=== PATIENT | female | born 1990 | race American Indian/Alaskan Native ===

== ENCOUNTER 2020-08-04 14:44 | Emergency (ER) | payer MEDICAID, OTHER ==
[2020-08-04 15:58] VITALS: BP 117/60
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
--- NOTE | 2020-08-04 19:41 | XRay Report ---
LEFT HAND 3 VIEW(S) INDICATION / CLINICAL INFORMATION: HAND PAIN COMPARISON: None available. FINDINGS: BONES / JOINT(S): No acute fracture or subluxation. No significant arthritis. SOFT TISSUES: No significant abnormality. ADDITIONAL FINDINGS: None. IMPRESSION: No acute osseous findings of the left hand. Signer Name: Baldemar De León MD Signed: 08/04/2020 7:37 PM Workstation Name: [id number]
--- NOTE | 2020-08-04 19:41 | XRay Report ---
XR spine cervical 2-3V INDICATION / CLINICAL INFORMATION: neck pain. COMPARISON: None available. FINDINGS: BONES/JOINT(S): Minimal retrolisthesis of C4 on C5, which may be partially related to projection. Cer vical spinal alignment is otherwise preserved. Vertebral body heights are intact. There is no evidenc e of fracture. Cervical disc spaces are maintained. PARASPINAL SOFT TISSUES:No significant abnormality. ADDITIONAL FINDINGS: None. IMPRESSION: No acute osseous findings of the cervical spine. Signer Name: Baldemar De León MD Signed: 08/04/2020 7:36 PM Workstation Name: [id number]
== END 2020-08-04 20:00 | disposition left against medical advice (07) ==
LOC: ED 14:44
DX: R45.851 Suicidal ideations (principal); Z53.21 Procedure and treatment not carried out due to patient leaving prior to being seen by health care provider
CPT/HCPCS: 72040